=== PATIENT | female | born 1985 | race Hispanic/Latino ===

== ENCOUNTER 2016-11-12 20:45 | Inpatient (IN) | payer SELFPAY ==
[2016-11-12] MEDS ORDERED: Ondansetron HCl/PF 4 MG/2 ML Vial ONE (21:35)
[2016-11-12] MEDS ORDERED: diphenhydrAMINE HCl 50 MG/ML 1 ML VIAL ONE (21:35)
[2016-11-12 21:36] LABS: #Basophils 0.1 thou/uL (0.0-0.2); #Eosinphils 0.2 thou/uL (0.0-0.7); #Lymphocytes 2.3 thou/uL (1.20-3.40); #Monocytes 0.7 thou/uL (0.11-0.59); #Neutrophils 6.7 thou/uL (1.40-6.50); %Basophils 0.8 % (0.0-1.0); %Eosinophils 1.7 % (0.0-10.0); %Lymphocytes 23.4 % (21.0-51.0); %Monocytes 6.8 % (0.0-10.0); Hematocrit 42.3 % (36.0-47.0); Mean Platelet Volume 7.6 fL (7.4-10.4); Red Blood Cell (RBC) Count 4.35 mill/uL (4.20-5.40)
[2016-11-12 21:46] LABS: ALT (SGPT) 11 U/L (8-55); AST (SGOT) 15 U/L (5-34); Alkaline Phosphatase 86 U/L (40-150); Anion Gap 13 mmol/L (10-20); BUN (Urea Nitrogen) 11 mg/dL (7.0-18.7); Bilirubin, Total 0.3 mg/dL (0.2-1.2); Calc. Creatinine Clearance 0 mL/min (70-130); Calcium 8.9 mg/dL (7.8-10.44); Carbon Dioxide 26 mmol/L (22-29); Chloride 103 mmol/L (98-107); Estimated GFR-MDRD Greater than 90; Globulin 3.9 g/dL (2.4-3.5); Lipase 8 U/L (8-78); Protein, Total 7.9 g/dL (6.0-8.3)
[2016-11-12] MEDS ORDERED: Crotalidae Polyvlnt Antivenin 4 GM in Sodium Chloride 0.9% 250 ML 250 ML IVPB SCH (22:30)
[2016-11-13 00:19] LABS: Bilirubin Negative (Negative); Blood, Urine Trace (Negative); Glucose, Urine (Dipstick) Negative (Negative); Ketone, Urine Negative (Negative); Nitrite Negative (Negative); Protein, Urine (Dipstick) 30 mg/dL (Neg-Trace); Urobilinogen 0.2 mg/dL (0.2-1.0)
[2016-11-13 00:20] LABS: Bacteria/HPF Rare-Few HPF (None Seen); Hyaline Casts/LPF 4-6 HYALINE CAST LPF (0-3 Hyaline); RBC/HPF 21-50 HPF (0-3); Squamous Epithelial 0-3 HPF (0-3)
[2016-11-13] MEDS ORDERED: Ondansetron ODT 4 MG TAB SL PRN (00:58)
[2016-11-13] MEDS ORDERED: Ondansetron HCl/PF 4 MG/2 ML Vial IVP PRN ×2 (00:58→04:58)
[2016-11-13] MEDS ORDERED: Sodium Chloride 0.9% 1,000 ML IV SCH ×3 (00:58→09:15)
[2016-11-13 01:05] VITALS: BMI 29.4
[2016-11-13] MEDS ORDERED: TETANUS AND DIPHTHERIA TOX/PF 0.5 ML DISP.SYRIN IM ONE (01:15)
[2016-11-13] MEDS ORDERED: diphenhydrAMINE HCl 50 MG/ML 1 ML VIAL IVP PRN (01:15)
[2016-11-13 01:31] LABS: PTT 34.8 SEC (22.9-36.1); Prothrombin Time 15.7 SEC (12.0-14.7)
[2016-11-13] MEDS ORDERED: HOLD ALL ANTI-COAGULANTS/ANTI-PLATELETS/NSAIDS PO SCH (02:45)
[2016-11-13] MEDS ORDERED: diphenhydrAMINE HCl 25 MG CAP PO PRN (04:57)
[2016-11-13] MEDS ORDERED: Ondansetron ODT 4 MG TAB PO PRN (04:58)
--- NOTE | 2016-11-13 05:50 | PDOC.FM ---
- Subjective Subjective: Patient is doing well this morning. Reports pain and swelling are much better and no longer reports pain in L medial thigh. Patient denies N/V and hematuria. - Objective MAR Reviewed: Yes Vital Signs & Weight: Vital Signs (12 hours) Temp Pulse Resp BP Pulse Ox 11/13/16 04:44 90/58 L 11/13/16 04:00 97.7 F 81 20 82/48 L 98 11/13/16 00:50 97.7 F 82 18 106/55 L 95 Weight Weight 68.402 kg Result Diagrams: 11/13/16 01:15 11/12/16 21:10 Additional Labs: PT- 15.7 PTT- 34.8 INR- 1.2 <Alisa Lawson - Last Filed: 11/13/16 11:57> - Objective Vital Signs & Weight: Vital Signs (12 hours) Temp Pulse Resp BP BP Pulse Ox 11/14/16 11:39 98.4 F 63 16 106/55 L 99 11/14/16 08:00 98.0 F 66 20 99 11/14/16 04:30 98.0 F 66 20 100/51 L 98 Weight Weight 68.402 kg I&O: 11/13/16 11/14/16 11/15/16 06:59 06:59 06:59 Intake Total 1510 Balance 1510 Result Diagrams: 11/13/16 23:15 11/12/16 21:10 <Cathy Albright - Last Filed: 11/14/16 13:57> Phys Exam - Physical Examination Constitutional: NAD HEENT: moist MMs Respiratory: no wheezing, no rales, clear to auscultation bilateral Cardiovascular: RRR, no significant murmur Gastrointestinal: soft, non-tender, no distention Musculoskeletal: pulses present L foot with edema, well within marked lines from 3 hours ago. Neurological: normal sensation Psychiatric: normal affect, A&O x 3 Deviation from normal: No erythema of L leg, 2+ edema to the level of the ankle <Alisa Lawson - Last Filed: 11/13/16 11:57> Dx/Plan (1) Snake bite poisoning Code(s): T63.001A - TOXIC EFFECT OF UNSP SNAKE VENOM, ACCIDENTAL, INIT Status : Acute (2) Hypotension Status: Acute - Plan Plan: Snake Bite - on crofab protocol, in the mainenance phase - scheduled to recieve 2 vials at 1400 and 2000 - will recheck coag studies at 0800 tomorrow - improving symptomatically, likely d/c tomorrow Hypotension - patient reports baseline pressures of 90's/50's, so is less concerning, but will treat due to recent snake bite. - recieved 1L bolus and continue aggressive hydration at 150ml/hr - plan to d/c fluids tomorrow pending volume status <Alisa Lawson - Last Filed: 11/13/16 11:57> Attending Addendum - Attending Addendum I personally evaluated the patient and discussed the management with Dr. Lawson on 11/13/16. I agree with the History, Examination, Assessment and Plan documented above with any addition or exceptions noted below. The patient's swelling is improved in her lower leg but still present in the foot. Crofab has helped. will continue snake bite protocol. <Cathy Albright - Last Filed: 11/14/16 13:57>
--- NOTE | 2016-11-13 08:11 | HP-2 ---
DATE OF ADMISSION: 11/12/2016 TIME: 2300 CODE STATUS: FULL. PRIMARY CARE PHYSICIAN: Mireya das. ATTENDING: Cathy Albright M.D. RESIDENT: Naveen Quiñonez DO HISTORIAN: Patient. SPECIALISTS: None. CHIEF COMPLAINT: Snakebite. HISTORY OF PRESENT ILLNESS: A 31-year-old female here for a complaint of snakebite to the left lateral foot. She was bitten at approximately 2000 hours on 11/11/2016. She did not immediately seek help because she states that the pain initially was not unbearable and she needed to make a court date in [place] today. The pain and swelling are progressively worse. She decided to seek help today. She states that she is walking with the sandals on her driveway yesterday evening. She felt a bite to her left foot and looked down and saw a small round snake that she was unable to identify it is whether underneath a vehicle in the driveway. She denies since then loss of motor function in the left foot. She denies any bleeding in her gums, blood in her stool, blood in her urine. In the ER, she was started on CroFab. She was given Benadryl, morphine for pain, and Zofran. PAST MEDICAL HISTORY: None. 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 ALLERGIES: No known drug allergies. MEDICATIONS: None. SOCIAL HISTORY: Denies tobacco, alcohol, or drugs. REVIEW OF SYSTEMS: General: The patient denies fever, chills, change in appetite or weight. Nonspecific fatigue. HEENT: Denies vision changes, eye pain, nasal congestion, or rhinorrhea. Respiratory: Denies any cough, congestion, shortness of breath. Cardiovascular: Denies any chest pain or palpitations. GI: Denies any nausea, vomiting, diarrhea. Skin: Admits to bruising to her left foot. Musculoskeletal: Admits to pain, tenderness, and swelling to the left foot and leg. Neurologic: States that she has some numbness in her left foot and left toes; however, she denies any weakness. PHYSICAL EXAMINATION: VITAL SIGNS: Blood pressure 110/71, pulse 58, respiratory rate 18, T-max 97.3, pulse ox 99% on room air. Current weight 68 kilograms. GENERAL: The patient is alert and oriented x3, and in no apparent distress. HEENT: EOMI. Conjunctivae within normal limits. NECK: Supple, without lymphadenopathy. CARDIOVASCULAR: Regular rate and rhythm without murmur. RESPIRATORY: Normal effort, no retractions. Clear to auscultation bilaterally. SKIN: Warm and dry. There are 2 puncture wounds to the lateral side of the fifth MTP with surrounding edema and ecchymosis. MUSCULOSKELETAL: On the extremity, she has full motion and strength is equal bilaterally; however, there appears to be some loss of sensation to the toes and the lateral side of the distal left lower extremity. ABDOMEN: Soft, nontender. Bowel sounds in all 4 quadrants. No neurological deficits, otherwise noted. No musculoskeletal abnormalities are otherwise noted. LABORATORY DATA: CBC: Hemoglobin 13.7, hematocrit 42.3, white count 10.0, platelets 361. CMP: Sodium 138, potassium 3.5, chloride 103, bicarbonate 26, BUN 11, creatinine 0.69, glucose 100, calcium 8.9, total serum protein 7.9, albumin 4.0, AST is 15, ALT is 11, alkaline phosphatase 36, total bilirubin was 0.3, PT 15.0, INR 1.2, PTT 37.2. Fibrinogen is 360. ASSESSMENT AND PLAN: A [id number] with a pit viper envenomation to the left foot. 1. Evenomation. Will administer Crofab and initiate snake bite protocol. Monitor for signs of compartment syndrome and allergic reaction of the CroFab. Repeat coag panel at 2345 hours and follow up again in 6 hours per protocol. Admit to medicine. Continue morphine p.r.n. for pain. MTDD
[2016-11-13] MEDS: Crotalidae Polyvlnt Antivenin 2 GM in Sodium Chloride 0.9% 250 ML 250 ML IVPB SCH ×3 (08:40→20:18)
[2016-11-13] MEDS: Sodium Chloride 0.9% 1,000 ML IV SCH ×2 (08:43→16:44)
--- NOTE | 2016-11-13 14:06 | HP ---
DATE OF SERVICE: 11/13/2016 CHIEF COMPLAINT: Snake bite. HISTORY OF PRESENT ILLNESS: The patient is a 31-year-old female with no significant past medical hi story who presented to the ER last evening with a snake bite to her left lateral foot. She notes th at she was actually bitten the night before on 11/11/2016. She states that she was walking outside, felt a sharp pain in her foot, looked down and saw a snake slithering away under a car. She was un able to identify the type of snake. The patient states that her foot continued to get more and more swollen and pain increased since she presented to the ER 24 hours after the snake bite. In the ER, the patient was started on CroFab with a snake bite protocol and has subsequently been admitted. T he patient has had some episodes of hypotension over the course of her hospitalization; however, she has been asymptomatic the whole time. I do not know what the patient's baseline blood pressure is; with her being young and healthy, she may live relatively low. She is getting fluid boluses, howev er. This morning, she states after multiple doses of the CroFab, the swelling that had once gone al l the way up to her knee, is now just located in her foot. Her pain is improved. For the full past medical history, please see the resident's dictation. PHYSICAL EXAMINATION: VITAL SIGNS: Temperature 97.8, pulse 76, respiration rate 16, O2 sat 98% on room air, blood pressur e 91/48. GENERAL: The patient is awake, alert, and oriented, in no acute distress. EYES: Pupils are equal, round, and reactive to light and accommodation. Extraocular muscles are in tact. ENT: Oropharynx and nasopharynx without erythema or exudate. NECK: Supple without lymphadenopathy, thyromegaly, or bruits. CARDIOVASCULAR: Regular rate and rhythm without murmurs, gallops, or rubs. LUNGS: Clear to auscultation bilaterally without wheezing or rhonchi. ABDOMEN: Soft, nontender, nondistended. Bowel sounds present. EXTREMITIES: There is no clubbing or cyanosis. The patient does have localized swelling along the left lateral foot. No redness is noted. There are lines marked to try to follow the swelling. She states it is much better and is only tender kind of in the middle of her foot. Two puncture wounds are noted to the lateral side of the foot. MUSCULOSKELETAL: Patient has full range of motion of all extremities. Muscle strength is 5/5. NEUROLOGIC: Cranial nerves II through XII are grossly intact. Deep tendon reflex is 2/4. LABORATORY DATA: 1. CBC: WBC 10.0, hemoglobin 13.7, hematocrit 42.3, platelet count 361. 2. PT initially 15.0, now 15.7. INR initially 1.2 and has remained 1.2. 3. PTT initially 37.2, now 34.8. 4. Fibrinogen 360 to 304. 5. CMP, unremarkable. 6. Lipase 8. 7. negative. 8. Urinalysis significant for protein 30, blood trace, leukocyte esterase trace, red blood cells 21 -50, white blood cells 7-10, hyaline casts 4-6. ASSESSMENT AND PLAN: 1. Snake bite envenomation: The patient is on the snake bite protocol. She has received multiple doses of CroFab and swelling significantly improved. We will continue with snake bite protocol and if labs and everything remains stable, she might be able to be discharged at the earliest later this afternoon or more likely tomorrow. We will continue pain control as well. 2. Please see the resident's dictation for full the history and physical, assessment and plan.
[2016-11-13] MEDS ORDERED: Acetaminophen 325 MG TAB PO PRN (16:04)
[2016-11-13 23:26] LABS: #Eosinphils 0.3 thou/uL (0.0-0.7); #Lymphocytes 1.2 thou/uL (1.20-3.40); #Monocytes 0.3 thou/uL (0.11-0.59); #Neutrophils 3.5 thou/uL (1.40-6.50); %Basophils 0.1 % (0.0-1.0); %Eosinophils 5.2 % (0.0-10.0); %Lymphocytes 22.1 % (21.0-51.0); %Monocytes 6.3 % (0.0-10.0); Hematocrit 33.7 % (36.0-47.0); Mean Platelet Volume 7.6 fL (7.4-10.4); Red Blood Cell (RBC) Count 3.43 mill/uL (4.20-5.40); White Blood Cell (WBC) Count 5.3 thou/uL (4.8-10.8)
[2016-11-13 23:33] LABS: PTT 31.9 SEC (22.9-36.1); Prothrombin Time 15.1 SEC (12.0-14.7)
[2016-11-14] MEDS: Sodium Chloride 0.9% 1,000 ML IV SCH (00:05)
--- NOTE | 2016-11-14 05:37 | PDOC.FM ---
- Subjective Subjective: Patient is resting comfortably. 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 - Objective MAR Reviewed: Yes Vital Signs & Weight: Vital Signs (12 hours) Temp Pulse Resp BP BP Pulse Ox 11/14/16 00:39 60 20 99/55 L 11/13/16 20:00 98.8 F 88 20 93/55 L 98 Weight Weight 68.402 kg Result Diagrams: 11/13/16 23:15 11/12/16 21:10 <Alisa Lawson - Last Filed: 11/14/16 07:34> - Objective Vital Signs & Weight: Vital Signs (12 hours) Temp Pulse Resp BP BP Pulse Ox 11/14/16 11:39 98.4 F 63 16 106/55 L 99 11/14/16 08:00 98.0 F 66 20 99 11/14/16 04:30 98.0 F 66 20 100/51 L 98 Weight Weight 68.402 kg I&O: 11/13/16 11/14/16 11/15/16 06:59 06:59 06:59 Intake Total 1510 Balance 1510 Result Diagrams: 11/13/16 23:15 11/12/16 21:10 <Cathy Albirght - Last Filed: 11/14/16 14:36> Phys Exam - Physical Examination Constitutional: NAD Respiratory: no wheezing, no rales, clear to auscultation bilateral Cardiovascular: RRR, no significant murmur pedal pulses equal and full L leg with 1+ pitting edema up to the level of mid calf Neurological: normal sensation Psychiatric: normal affect, A&O x 3 Deviation from normal: No erythema or cyanosis <Alisa Lawosn - Last Filed: 11/14/16 07:34> Dx/Plan (1) Snake bite poisoning Code(s): T63.001A - TOXIC EFFECT OF UNSP SNAKE VENOM, ACCIDENTAL, INIT Status : Acute (2) Hypotension Status: Acute - Plan Plan: Snake Bite - Completed Crofab protocol, will recheck coag studies this morning and if PT trending downward, will d/c today Hypotension - patient continues to have BP in 90's/50's, likely at baseline - Pressures have not worsened and patient has not required any more fluid boluses - Tolerating po, will d/c fluids and encourage po intake <Alisa Lawson - Last Filed: 11/14/16 07:34> Attending Addendum - Attending Addendum I personally evaluated the patient and discussed the management with Dr. Lawson. I agree with the History, Examination, Assessment and Plan documented above with any addition or exceptions noted below. The patient's lower extremity swelling is improved. Coags are improved. Advised patient that swelling may persist for several days. She may be discharged home. <Cathy Albright - Last Filed: 11/14/16 14:36>
[2016-11-14 08:17] LABS: Prothrombin Time 14.7 SEC (12.0-14.7)
[2016-11-14 20:12] VITALS: BP 100/61; TEMP 98.7
--- NOTE | 2016-11-14 22:01 | DIS-2 ---
DATE OF ADMISSION: 11/12/2016 DATE OF DISCHARGE: 11/14/2016 ADMITTING PHYSICIAN: Cathy Albright M.D. DISCHARGE ATTENDING: Cathy Albright M.D. RESIDENT: Alisa Lawson DO CONSULTATIONS: None. PROCEDURES: None. PRIMARY DIAGNOSIS: Snakebite envenomation. SECONDARY DIAGNOSES: 1. Hypotension. 2. Coagulopathy due to snakebite envenomation. DISCHARGE MEDICATIONS: None. DISCONTINUED MEDICATIONS: None. HISTORY OF PRESENT ILLNESS AND HOSPITAL COURSE: The patient is a 31-year-old female who was bitten at approximately 8:00 p.m. on 11/11/2016 in the left lateral foot. She did not immediately seek help because she had important personal matters to deal with, but the pain and the swelling eventually progressed and she came to the hospital to us on 11/12/2016 at around 2300 hours. She does report that the snake was a small, round, brown snake. She was started on the CroFab protocol, did an initial 4 g of CroFab, Initial coag studies were checked and found to have a slightly elevated PT at 15.0, INR 1.2, and PTT 37.2, with a normal fibrinogen at 360. Labs were checked after starting dose of Crofab and PT was still slightly elevated, but symptomatically her swelling had greatly improved. She was then placed in the maintenance phase where she received 6 more grams of CroFab over the course of 18 hours and coag studies were then repeated. All coag studies were normalized at this time. The patient's symptoms had significantly improved. Swelling was markedly improved, only localized to the left foot whereas before had progressed up to the mid-calf area and patient no longer reported pain up into the left medial thigh but now just localized to the foot. There was no erythema and the patient was neurovascularly intact. The patient was discharged in stable condition. DISCHARGE INSTRUCTIONS: 1. Location: Home. 2. Diet: Regular. 3. Activity: As tolerated. 4. Followup: Follow up at [facility] in 1 week to assess improvement. PEGGY
[2016-11-15] MEDS ORDERED: FLU VACC QS2017-18 36 mo. & older 0.5 ML SYRINGE IM ONE (09:00)
== END 2016-11-14 20:25 | disposition home or self-care (01) | DRG 918 ==
LOC: ERS 20:45 → 2NO 21:53
PROVIDERS: ADMIT Family Medicine; ATTEND Family Medicine
DX: T63.001A Toxic effect of unspecified snake venom, accidental (unintentional), initial encounter (principal); I95.89 Other hypotension; D68.9 Coagulation defect, unspecified; Y92.008 Other place in unspecified non-institutional (private) residence as the place of occurrence of the external cause
CPT/HCPCS: 36415; 80053; 81003; 81015; 82550; 83690; 84703; 85025; 85049; 85384; 85610; 85730; 86850; 86900; 86901; 96361; 96365; 96375; 96376; J0840; J1200; J2270; J2405; J7050